=== PATIENT | female | born 1975 | race Hispanic/Latino ===

== ENCOUNTER 2017-06-11 11:42 | Outpatient (CLI) | payer MEDICAID, SELFPAY | END 2017-06-11 11:43 | disposition home or self-care (01) | LOC: HPCALD 11:42 | PROVIDERS: ATTEND Physician Assistant | DX: Z01.419 Encounter for gynecological examination (general) (routine) without abnormal findings (principal) | CPT/HCPCS: 87480; 87491; 87510; 87591; 87660; 88142; G0123 ==

== ENCOUNTER 2017-12-25 18:23 | Emergency (ER) | payer MEDICAID, SELFPAY ==
[2017-12-25] MEDS ORDERED: Ketorolac Tromethamine 30 MG/ML VIAL ONE (18:47)
[2017-12-25 18:53] LABS: Bilirubin Negative (Negative); Blood, Urine Trace (Negative); Clarity Slightly Cloudy (Clear); Glucose, Urine (Dipstick) Negative (Negative); Leukocyte Negative (Negative); Nitrite Negative (Negative); Protein, Urine (Dipstick) Negative (Neg-Trace); Urobilinogen 0.2 mg/dL (0.2-1.0)
[2017-12-25 18:55] LABS: Bacteria/HPF Rare-Few HPF (None Seen); Crystals/HPF None Seen HPF (Negative); Hyaline Casts/LPF NONE SEEN LPF (0-3 Hyaline); Other Casts/LPF None Seen LPF (0-3 Hyaline); Oval Fat Bodies/HPF None Seen HPF (None Seen); RBC/HPF 0-3 HPF (0-3); Renal Epithelial None Seen HPF (0-3); Sperm/HPF None Seen HPF (None Seen); Transitional Epithelial NONE SEEN HPF (0-3); Trichomonas/HPF None Seen HPF (None Seen); WBC/HPF None Seen HPF (0-3); Yeast-All Forms None Seen HPF (None Seen)
[2017-12-25 19:07] LABS: ALT (SGPT) 14 U/L (8-55); AST (SGOT) 22 U/L (5-34); Albumin 4.2 g/dL (3.5-5.0); Alkaline Phosphatase 65 U/L (40-150); Anion Gap 14 mmol/L (10-20); BUN (Urea Nitrogen) 9 mg/dL (7.0-18.7); Bilirubin, Total 0.3 mg/dL (0.2-1.2); Calc. Creatinine Clearance 0 mL/min (70-130); Calcium 9.1 mg/dL (7.8-10.44); Carbon Dioxide 22 mmol/L (22-29); Chloride 107 mmol/L (98-107); Estimated GFR-MDRD 89; Globulin 3.5 g/dL (2.4-3.5); Glucose 63 mg/dL (70-105); Lipase 31 U/L (8-78); Potassium 3.6 mmol/L (3.5-5.1); Protein, Total 7.7 g/dL (6.0-8.3); Sodium 139 mmol/L (136-145)
[2017-12-25 19:12] LABS: Band 1 % (5-11); Eosinophils 1 % (0-10); Hemoglobin 12.8 g/dL (12.0-16.0); Lymphocytes 29 % (21-51); MDiff Complete? YES; Mean Corpuscular HGB CONC 33.4 g/dL (32.0-36.0); Mean Corpuscular Hemoglobin 30.3 pg (27.0-31.0); Mean Corpuscular Volume 90.6 fl (81.0-99.0); Mean Platelet Volume 8.1 fL (7.4-10.4); Monocytes 7 % (0-10); Neutrophil 62 % (42-75); Platelet Count 208 thou/uL (130-400); Red Blood Cell (RBC) Count 4.22 mill/uL (4.20-5.40); White Blood Cell (WBC) Count 8.6 thou/uL (4.8-10.8)
[2017-12-25] MEDS ORDERED: HYDROcodone/Acetaminophen 5/325 mg Tablet ONE (20:05)
--- NOTE | 2017-12-25 20:52 | CT ---
CT ABDOMEN AND PELVIS WITH CONTRAST: 12/25/[address] of the abdomen and pelvis was performed for evaluation of abdominal pain and nausea. Axial slices were acquired using IV contrast. Oral contrast was withheld by request. Comparison is made with the prior study dated 08/17/14. The lung bases are clear. The liver, spleen, pancreas, adrenal glands, kidneys, and abdominal aorta w ere all unremarkable in appearance. There has been a prior cholecystectomy. There was no sign of bowel obstruction, though there is a large amount of fecal material in the colon . No bowel wall thickening or inflammatory changes around it were seen at any point. There are no fin dings typical of diverticulitis. No free air or free fluid was seen. CT of the pelvis was remarkable for several right adnexal cysts. The two largest measuring 3.1 and 1. 9 cm respectively. There are a few small cysts in the left adnexa but they are not of concern, only m easuring up to about 1.6 cm in size. The uterus is notable for it being much more vascular than one u parveenally sees, the significance of such is unknown, however. No free fluid of concern was seen in the p celine. If there is any in the cul-de-sac it would be on the right side and scant in amount, not enoug h to be a concern. 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 Also noted was a large amount of undigested food in the stomach. IMPRESSION: 1. Several large cystic structures in the right adnexa. An elective ultrasound may be helpful. I ncreased vascularity of the uterus itself, significance not known. 2. Constipation. POS: HOME
== END 2017-12-25 20:06 | disposition home or self-care (01) ==
LOC: BURERS 18:23
DX: N83.201 Unspecified ovarian cyst, right side (principal); K59.00 Constipation, unspecified; F41.9 Anxiety disorder, unspecified; F17.210 Nicotine dependence, cigarettes, uncomplicated
CPT/HCPCS: 74177; 80053; 81003; 81015; 83690; 85025; 96361; 96374; J1885

== ENCOUNTER 2021-10-10 11:49 | Emergency (ER) | payer SELFPAY ==
[2021-10-10] MEDS ORDERED: Dexamethasone 10 MG/ML VIAL ONE (13:21)
[2021-10-10] MEDS ORDERED: Ondansetron ODT 4 MG TAB ONE (13:21)
[2021-10-11 14:04] LABS: SARS-CoV-2 PCR by NAA DETECTED (NotDetected)
== END 2021-10-10 14:55 | disposition home or self-care (01) ==
LOC: BURERS 11:49
DX: U07.1 COVID-19 (principal); F17.210 Nicotine dependence, cigarettes, uncomplicated
CPT/HCPCS: 71045; 87804; J1100; Q0162; U0003; U0005

== ENCOUNTER 2022-07-18 20:42 | Emergency (ER) | payer OTHER, SELFPAY ==
[2022-07-18] MEDS ORDERED: Boostrix 0.5 ML (Tdap) VIAL ONE ×2 (21:27→21:38)
[2022-07-18] MEDS ORDERED: Ibuprofen 200 MG TAB ONE (21:47)
== END 2022-07-18 21:45 | disposition home or self-care (01) ==
LOC: BURERS 20:42
DX: S61.217A Laceration without foreign body of left little finger without damage to nail, initial encounter (principal); X58.XXXA Exposure to other specified factors, initial encounter
CPT/HCPCS: 12001; 90471; 90715

== ENCOUNTER 2024-04-05 15:35 | Emergency (ER) | payer OTHER, SELFPAY ==
[~2024-04-05 15:35] MED LIST: Iopamidol 370 76% 100 ML VIAL ONE
[2024-04-05] MEDS ORDERED: Acetaminophen 500 MG TAB ONE (15:48)
[2024-04-05 16:04] LABS: Bilirubin Small (Negative); Blood, Urine Trace (Negative); Clarity Slightly Cloudy (Clear); Glucose, Urine (Dipstick) Negative (Negative); Ketone, Urine > or equal to 80 mg/dL (Negative); Leukocyte Negative (Negative); Nitrite Negative (Negative); Protein, Urine (Dipstick) 100 mg/dL (Neg-Trace); Urobilinogen 0.2 mg/dL (Less than 2)
[2024-04-05 16:06] LABS: Pregnancy Test - Urine (BHCG) Negative (Negative); Pregu Control Background? CLEAR/WHITE (CLR/WHITE); Pregu Control Bar Appear? YES (CONTROL BAR); Specific Gravity 1.028 (1.002-1.036); Specific Gravity, Urine 1.028 (1.002-1.036)
[2024-04-05 16:14] LABS: Bacteria/HPF 3+ HPF (None Seen); CAUTI Indications for Culture Dysuria,urgency,freq; Mucous/LPF 4+ LPF (<2+); RBC/HPF 0-3 HPF (0-3)
[2024-04-05 16:15] LABS: Urine Culture Reflex No No
[2024-04-05] MEDS ORDERED: Ondansetron PF 4 MG/2 ML Vial ONE (16:22)
[2024-04-05] MEDS ORDERED: Morphine 4 MG/ML VIAL ONE (16:22)
[2024-04-05 16:29] LABS: ALT (SGPT) 86 U/L (8-55); AST (SGOT) 66 U/L (5-34); Albumin 4.1 g/dL (3.5-5.0); Alkaline Phosphatase 134 U/L (40-110); Anion Gap 16 mmol/L (10-20); BUN (Urea Nitrogen) 11 mg/dL (7.0-18.7); Bilirubin, Total 0.5 mg/dL (0.2-1.2); Calc. Creatinine Clearance 0 mL/min (70-130); Calcium 8.9 mg/dL (7.8-10.44); Carbon Dioxide 18 mmol/L (22-29); Chloride 104 mmol/L (98-107); Estimated GFR 84; Globulin 3.8 g/dL (2.4-3.5); Glucose 96 mg/dL (70-105); Hematocrit 32.6 % (36.0-47.0); Hemoglobin 8.9 g/dL (12.0-16.0); Lipase 15 U/L (8-78); Mean Corpuscular HGB CONC 27.1 g/dL (32.0-36.0); Mean Corpuscular Volume 62.6 fl (78.0-98.0); Mean Platelet Volume 8.3 fL (7.4-10.4); Platelet Count 164 10x3/uL (130-400); Potassium 3.4 mmol/L (3.5-5.1); Protein, Total 7.9 g/dL (6.0-8.3); RBC Distribution Width 16.8 % (11.5-14.5); Red Blood Cell (RBC) Count 5.22 mill/uL (4.20-5.40); Sodium 135 mmol/L (136-145); White Blood Cell (WBC) Count 12.5 10x3/uL (4.8-10.8)
[2024-04-05 16:37] LABS: Band 3 % (5-11); Elliptocytes SLIGHT = 2-5 cells (100X) (0-1/hpf); Hypochromia MARKED = >30 cells (100X) (0-5/hpf); Lymphocytes 9 % (21-51); MDiff Complete? YES; Microcytosis MODERATE=15-30 cells (100X) (0-5/hpf); Monocytes 11 % (0-10); Neutrophil 76 % (42-75); Reflex for Review?? YES
[2024-04-05] MEDS ORDERED: Amoxicillin/Potassium Clav 875 MG TAB ONE (17:35)
== END 2024-04-05 17:56 | disposition home or self-care (01) ==
LOC: BURERS 15:35
DX: K52.9 Noninfective gastroenteritis and colitis, unspecified (principal)
CPT/HCPCS: 71045; 74177; 80053; 81001; 81025; 83605; 83690; 85025; 85060; 96361; 96374; 96375; J2270; J2405; Q9967

== ENCOUNTER 2024-11-29 23:42 | Emergency (ER) | payer SELFPAY ==
[2024-11-30] MEDS ORDERED: HYDROcodone/Acetaminophen 10/325 mg Tablet ONE (00:04)
[2024-11-30] MEDS ORDERED: Triple Antibiotic Oint 1 GM Packet ONE (00:04)
== END 2024-11-30 00:35 | disposition home or self-care (01) ==
LOC: BURERS 23:42
DX: T25.232A Burn of second degree of left toe(s) (nail), initial encounter (principal); F17.210 Nicotine dependence, cigarettes, uncomplicated; X58.XXXA Exposure to other specified factors, initial encounter
CPT/HCPCS: 99283